=== PATIENT | male | born 1965 | race Hispanic/Latino ===

== ENCOUNTER 2018-05-02 09:24 | Emergency (ER) | payer BC ==
[2018-05-02 09:36] VITALS: RESP 18; O2SAT 100
[2018-05-02] MEDS ORDERED: Sodium Chloride 0.9% 1,000 ML IV STA (09:51)
[2018-05-02 09:57] LABS: URINE BILIRUBIN NEGATIVE (NEGATIVE); URINE BLOOD MODERATE (NEGATIVE); URINE GLUCOSE (UA) NEGATIVE (NEGATIVE); URINE LEUKOCYTE ESTERASE TRACE Leu/uL (NEGATIVE); URINE PROTEIN NEGATIVE mg/dL (<30 mg/dL); URINE UROBILINOGEN 0.2 E.U./dL (<1 E.U./dL)
[2018-05-02 10:02] LABS: URINE APPEARANCE SL CLOUDY (CLEAR); URINE COLOR YELLOW (YELLOW)
[2018-05-02 10:03] LABS: BASO # 0.03 K/mm3 (0.0-2.0); BASO % 0.2 % (0.0-3.0); EOS % 0.1 % (1.5-5.0); GRAN # 11.35 (1.4-6.5); GRAN % 81.3 % (50.0-68.0); LYMPH # 1.6 (1.2-3.4); LYMPH % 11.5 % (22.0-35.0); MEAN CELL VOLUME 78.9 fl (80.0-105.0); MEAN CORPUSCULAR HEMOGLOBIN 28.2 pg (25.0-35.0); MEAN CORPUSCULAR HGB CONC 35.7 g/dl (31.0-37.0); MEAN PLATELET VOLUME 9.2 fl (7.0-11.0); MONO % 6.9 % (1.0-6.0); RBC 5.32 10^6/uL (3.5-6.1); RED CELL DISTRIBUTION WIDTH 13.2 % (11.5-14.5)
--- NOTE | 2018-05-02 10:09 | ED PDOC ---
Arrival/HPI - General Chief Complaint: Male Genitourinary Time Seen by Provider: 05/02/18 09:42 Historian: Patient - History of Present Illness Narrative History of Present Illness (Text): 05/02/18 10:05 53yr old male presents today with left sided abdominal pain and flank pain. pt states for the past few weeks he has been having dysuria and urinary frequency which worsened yesterday prior to the onset of the sided flank pain. pt denies trauma or injury. pt denies fever/chills. no cp or sob. pt denies vomiting but states he is feeling slightly nauseous. pt with prior hx of kidney stones. denies hematuria. states he had 1 episode of diarrhea yesterday but normal bowel movement today. pt c/o pain radiating into left testicle. Time/Duration: Other (last night) Symptom Onset: Gradual Symptom Course: Worsening Quality: Aching, Burning Severity Level: Mild Past Medical History - Provider Review Nursing Documentation Reviewed: Yes - Travel History Have you recently traveled outside [place] w/in the past 3 mons?: No - Tetanus Immunization Tetanus Immunization: Unknown - Renal Hx Kidney Stones: Yes - Psychiatric Hx Substance Use: No - Surgical History Other/Comment: R foot sx - Anesthesia Hx Anesthesia: Yes Hx Anesthesia Reactions: No Hx Malignant Hyperthermia: No Family/Social History - Physician Review Nursing Documentation Reviewed: Yes Family/Social History: Unknown Family HX Smoking Status: Never Smoked Hx Alcohol Use: Yes Frequency of alcohol use: Socially Hx Substance Use: No Allergies/Home Meds Allergies/Adverse Reactions: Allergies No Known Allergies Allergy (Verified 05/02/18 09:36) Home Medications: Home Meds Medication Instructions Recorded Confirmed Atorvastatin [Lipitor] 20 mg PO HS 05/02/18 05/02/18 Esomeprazole Magnesium [Nexium] 40 mg PO DAILY 05/02/18 05/02/18 Review of Systems - Review of Systems Constitutional: absent: Fatigue, Fevers Respiratory: absent: SOB, Cough Cardiovascular: absent: Chest Pain, Palpitations Gastrointestinal: Abdominal Pain, Diarrhea, Nausea. absent: Constipation, Vomiting Genitourinary Male: Dysuria, Frequency. absent: Hematuria, Urinary Output Changes Musculoskeletal: Back Pain. absent: Arthralgias, Neck Pain Skin: absent: Rash, Pruritis Neurological: absent: Headache, Dizziness Psychiatric: absent: Anxiety, Depression Physical Exam Vital Signs Reviewed: Yes Vital Signs Temp Pulse Resp BP Pulse Ox 05/02/18 10:27 98.6 F 78 18 137/84 100 05/02/18 09:24 99.5 F 86 18 158/92 H 100 Temperature: Afebrile Blood Pressure: Hypertensive Pulse: Regular Respiratory Rate: Normal Appearance: Positive for: Well-Appearing, Non-Toxic, Comfortable Pain Distress: None Mental Status: Positive for: Alert and Oriented X 3 - Systems Exam Head: Present: Atraumatic Mouth: Present: Moist Mucous Membranes Neck: Present: Normal Range of Motion Respiratory/Chest: Present: Clear to Auscultation, Good Air Exchange. No: Respiratory Distress, Accessory Muscle Use Cardiovascular: Present: Regular Rate and Rhythm, Normal S1, S2. No: Murmurs Abdomen: No: Tenderness, Distention, Peritoneal Signs, Rebound, Guarding Back: Present: Normal Inspection, Other (minimal left sided flank tenderness.). No: CVA Tenderness, Midline Tenderness Upper Extremity: Present: Normal ROM Lower Extremity: Present: Normal ROM Neurological: Present: GCS=15, Speech Normal Skin: Present: Warm, Dry, Normal Color. No: Rashes Psychiatric: Present: Alert, Oriented x 3 Medical Decision Making ED Course and Treatment: 05/02/18 10:10 Patient is nontoxic well appearing with stable vital signs presenting with left sided flank and abdominal pain CBC wbc; 14.1 CMP bun; 22 cr; 0.8 Lipase : wnl Urinalysis +blood, + leukocytes CAT scan: FINDINGS: LOWER THORAX: Unremarkable LIVER: Unremarkable. No gross lesion or ductal dilatation. GALLBLADDER AND BILE DUCTS: Unremarkable. PANCREAS: Unremarkable. No gross lesion or ductal dilatation. SPLEEN: Unremarkable. ADRENALS: Unremarkable. No mass. KIDNEYS AND URETERS: 2 mm calculus within the urinary bladder adjacent to the left ureterovesical junction indicative of recently passed stone. Mild left hydronephrosis and hydroureter. Two upper tract calculi identified layering in distended lower pole calyx. VASCULATURE: , hydroureter. BOWEL: Constipation without fecal impaction or obstruction. APPENDIX: Unremarkable. Normal appendix. PERITONEUM: Unremarkable. No free fluid. No free air. LYMPH NODES: Unremarkable. No enlarged lymph nodes. BLADDER: Otherwise unremarkable. 2 mm calculus adjacent to the left ureterovesical junction. REPRODUCTIVE: Unremarkable. BONES: No acute fracture. OTHER FINDINGS: None. IMPRESSION: Obstructive uropathy related to recently passed 2 mm calculus now residing in the urinary bladder adjacent to the left ureterovesical junction. Hydroureter, hydronephrosis identified. Upper tract calculi on the left also noted. These are nonobstructing. Additional benign and/or incidental findings described above. Patient reassessment: pt feeling better after medications, vitals stable. keflex given po urine culture pending. Discussed all results with patient in depth. advised f/u with PMD and urologist within the next 2 days. return immediately if symptoms worsen, persist or if new symptoms develop. Patient verbalizes understanding of discharge instructions and need for immediate followup. all aspects of this case were discussed the attending of record. Impression: kidney stone, hydronephrosis, hydroureter Motrin every 6 hours as needed for pain Keflex one capsule twice daily 10 days Follow up with primary care physician within the next 2 days Follow up with the urologist within the next 2 days. Return immediately if symptoms worsen persist or if new symptoms develop: High fevers, increasing pain, vomiting, diarrhea or any other concerning symptoms develop Reassessment Condition: Re-examined, Improved - Lab Interpretations Lab Results: 05/02/18 09:47 05/02/18 09:47 Lab Results 05/02/18 09:47: WBC 14.0 H, RBC 5.32, Hgb 15.0, Hct 42.0, MCV 78.9 L, MCH 28.2, MCHC 35.7, RDW 13.2, Plt Count 209, MPV 9.2, Gran % 81.3 H, Lymph % (Auto) 11.5 L, [place] % (Auto) 6.9 H, Eos % (Auto) 0.1 L, Baso % (Auto) 0.2, Gran # 11.35 H, Lymph # (Auto) 1.6, [place] # (Auto) 1.0 H, Eos # (Auto) 0.0, Baso # (Auto) 0.03 05/02/18 09:47: Sodium 137, Potassium 4.1, Chloride 103, Carbon Dioxide 22, Anion Gap 16, BUN 22 H, Creatinine 0.8, Est GFR ( Amer) > 60, Est GFR ( Non-Af Amer) > 60, Random Glucose 99, Calcium 9.2, Total Bilirubin 0.8, AST 49, ALT 106 H, Alkaline Phosphatase 74, Total Protein 7.5, Albumin 4.4, Globulin 3.1 , Albumin/Globulin Ratio 1.4, Lipase 92 05/02/18 09:35: Urine Color Yellow, Urine Appearance Sl cloudy, Urine pH 6.0, Ur Specific [place] 1.010, Urine Protein Negative, Urine Glucose (UA) Negative, Urine Ketones Negative, Urine Blood Moderate H, Urine Nitrate Negative, Urine Bilirubin Negative, Urine Urobilinogen 0.2, Ur Leukocyte Esterase Trace H, Urine RBC 5 - 10, Urine WBC 1 - 3 - RAD Interpretation Radiology Orders: 05/02/18 09:51 CHEST PORTABLE [RAD] Stat 05/02/18 10:11 ABD & PELVIS W/O PO OR IV CONT [CT] Stat - Medication Orders Current Medication Orders: Discontinued Medications Sodium Chloride (Sodium Chloride 0.9%) 1,000 mls @ 999 mls/hr IV .Q1H1M STA Stop: 05/02/18 10:51 Last Admin: 05/02/18 09:54 Dose: 999 mls/hr eMAR Start Stop Document 05/02/18 09:54 ANTONI (Rec: 05/02/18 09:54 ANTONI [id number]) Intravenous Solution Start Date 05/02/18 Start Time 09:54 End Date 05/02/18 End time 10:55 Total Infusion Time 61 Ketorolac Tromethamine (Toradol) 30 mg IVP STAT STA Stop: 05/02/18 09:52 Last Admin: 05/02/18 09:57 Dose: 30 mg MAR Pain Assessment Document 05/02/18 09:57 ANTONI (Rec: 05/02/18 09:58 ANTONI [id number]) Pain Reassessment Is this a pain reassessment? No Sleep Is patient sleeping during reassessment? No Presence of Pain Presence of Pain Yes Pain Scale Used Pain Scale Used Numeric Location Left, Right or Bilateral Left Upper or Lower Lower Pain Location Body Site Abdomen Description Description Intermittent Intensity of Pain at present 7 IVP Administration Document 05/02/18 09:57 ANTONI (Rec: 05/02/18 09:58 ANTONI [id number]) Charges for Administration # of IVP Administrations 1 Disposition/Present on Arrival - Present on Arrival Any Indicators Present on Arrival: No History of DVT/PE: No History of Uncontrolled Diabetes: No Urinary Catheter: No History of Decub. Ulcer: No History Surgical Site Infection Following: None - Disposition Have Diagnosis and Disposition been Completed?: Yes Diagnosis: Kidney stone, Hydronephrosis, Hydroureter, Urinary tract infection Disposition: HOME/ ROUTINE Disposition Time: 12:06 Patient Plan: Discharge Condition: GOOD Discharge Instructions (ExitCare): Urinary Tract Infections in Adults, Kidney Stones (DC), Urinary Obstruction Additional Instructions: Motrin every 6 hours as needed for pain Keflex one capsule twice daily 10 days Follow up with primary care physician within the next 2 days Follow up with the urologist within the next 2 days. Return immediately if symptoms worsen persist or if new symptoms develop: High fevers, increasing pain, vomiting, diarrhea or any other concerning symptoms develop Prescriptions: Cephalexin [Keflex] 500 mg PO BID #20 capsule Ibuprofen [Motrin] 600 mg PO Q6H PRN #20 tab PRN Reason: pain/fever reduction Referrals: Jenna BORRERO,Myron Wheeler MD [Primary Care Provider] - Follow up with primary Kenny Elizabeth MD [Staff Provider] - Follow up with primary Delores Elizabeth MD [Staff Provider] - Follow up with primary Forms: [employer] (Sinhala), WORK NOTE
[2018-05-02 10:14] LABS: ALBUMIN 4.4 g/dL (3.0-4.8); BLOOD UREA NITROGEN 22 mg/dL (7-21); CALCIUM 9.2 mg/dL (8.4-10.5); GFR AFRICAN-AMERICAN > 60; GFR NON-AFRICAN AMERICAN > 60
[2018-05-02 10:15] LABS: ALB/GLOB RATIO 1.4 (1.1-1.8); ALT/SGPT 106 U/L (7-56); AST/SGOT 49 U/L (17-59); LIPASE 92 U/L (23-300)
--- NOTE | 2018-05-02 10:59 | RAD ---
Date of service: 05/02/2018 HISTORY: Abdominal pain. Kidney stones. COMPARISON: No prior. FINDINGS: LUNGS: No active pulmonary disease. PLEURA: No significant pleural effusion identified, no pneumothorax apparent. CARDIOVASCULAR: No radiographic findings to suggest acute or significant cardiovascular disease. OSSEOUS STRUCTURES: No significant abnormalities. VISUALIZED UPPER ABDOMEN: Normal. OTHER FINDINGS: None. IMPRESSION: No active disease.
--- NOTE | 2018-05-02 11:42 | CT ---
Date of service: 05/02/2018 PROCEDURE: CT Abdomen and Pelvis without intravenous contrast HISTORY: ABDOMINAL PAIN and left flank pain COMPARISON: None. TECHNIQUE: Unenhanced study. Neither oral nor intravenous contrast administered. Radiation dose: Total exam DLP = 761.04 mGy-cm. This CT exam was performed using one or more of the following dose reduction techniques: Automated exposure control, adjustment of the mA and/or kV according to patient size, and/or use of iterative reconstruction technique. FINDINGS: LOWER THORAX: Unremarkable LIVER: Unremarkable. No gross lesion or ductal dilatation. GALLBLADDER AND BILE DUCTS: Unremarkable. PANCREAS: Unremarkable. No gross lesion or ductal dilatation. SPLEEN: Unremarkable. ADRENALS: Unremarkable. No mass. KIDNEYS AND URETERS: 2 mm calculus within the urinary bladder adjacent to the left ureterovesical junction indicative of recently passed stone. Mild left hydronephrosis and hydroureter. Two upper tract calculi identified layering in distended lower pole calyx. VASCULATURE: , hydroureter. BOWEL: Constipation without fecal impaction or obstruction. APPENDIX: Unremarkable. Normal appendix. PERITONEUM: Unremarkable. No free fluid. No free air. LYMPH NODES: Unremarkable. No enlarged lymph nodes. BLADDER: Otherwise unremarkable. 2 mm calculus adjacent to the left ureterovesical junction. REPRODUCTIVE: Unremarkable. BONES: No acute fracture. OTHER FINDINGS: None. IMPRESSION: Obstructive uropathy related to recently passed 2 mm calculus now residing in the urinary bladder adjacent to the left ureterovesical junction. Hydroureter, hydronephrosis identified. Upper tract calculi on the left also noted. These are nonobstructing. Additional benign and/or incidental findings described above.
[2018-05-02 13:00] VITALS: BP 132/81; PULSE 74; TEMP 98.5
== END 2018-05-02 13:00 | disposition home or self-care (01) ==
LOC: ED 09:24
DX: N13.2 Hydronephrosis with renal and ureteral calculous obstruction (principal); N13.4 Hydroureter; N39.0 Urinary tract infection, site not specified
CPT/HCPCS: 71045; 74176; 80053; 81001; 83690; 85025; 87086; 96361; 96374; 99284; J1885; J7030